=== PATIENT | male | born 1990 | race Caucasian/White ===

== ENCOUNTER 2018-07-04 18:59 | Emergency (ER) | payer OTHER ==
[~2018-07-04] VITALS: Ht 175.3 cm; Wt 105.7 kg
[~2018-07-04 18:59] MED LIST: APAP500 PO; NAPROSYN500 MG PO
[2018-07-04] MEDS ORDERED: IBUPROFEN 800800 M1 PO (19:41)
[2018-07-04 19:51] VITALS: BP 125/80
== END 2018-07-04 19:53 | disposition home or self-care (01) ==
LOC: M.ERS 18:59
DX: S89.81XA Other specified injuries of right lower leg, initial encounter (principal); Z90.49 Acquired absence of other specified parts of digestive tract; X50.1XXA Overexertion from prolonged static or awkward postures, initial encounter; Y93.21 Activity, ice skating; Y92.89 Other specified places as the place of occurrence of the external cause; Y99.8 Other external cause status

== ENCOUNTER → 2018-07-12 | Outpatient (CLI) | payer OTHER ==
[~2018-07-12] MED LIST changes: +IBUPROFEN 800800 M1 PO
== END ==
LOC: M.MRI 13:08
DX: S82.144A Nondisplaced bicondylar fracture of right tibia, initial encounter for closed fracture (principal); M22.41 Chondromalacia patellae, right knee; M67.461 Ganglion, right knee; V00.211A Fall from ice-skates, initial encounter; Y93.21 Activity, ice skating; Y92.89 Other specified places as the place of occurrence of the external cause; Y99.8 Other external cause status

== ENCOUNTER 2020-03-17 18:59 | Emergency (ER) | payer OTHER ==
[~2020-03-17] VITALS: Ht 175.3 cm; Wt 105.7 kg
[2020-03-17] MEDS ORDERED: PROAIR HFA8.5 GM INH ×2 (19:17→21:57)
[2020-03-17] MEDS ORDERED: PREDNISONE50 MG PO (21:57)
[2020-03-17 22:05] VITALS: BP 154/67
== END 2020-03-17 22:06 | disposition home or self-care (01) ==
LOC: M.ERS 18:59
DX: J40 Bronchitis, not specified as acute or chronic (principal); Z20.828 Contact with and (suspected) exposure to other viral communicable diseases; Z90.49 Acquired absence of other specified parts of digestive tract; Z88.0 Allergy status to penicillin

== ENCOUNTER 2021-01-15 17:33 | Emergency (ER) | payer OTHER ==
[~2021-01-15] VITALS: Ht 177.8 cm; Wt 92.1 kg
[~2021-01-15 17:33] MED LIST changes: +PREDNISONE50 MG PO; +PROAIR HFA8.5 GM INH
[2021-01-15 17:40] VITALS: BP 144/70
== END 2021-01-15 18:44 | disposition home or self-care (01) ==
LOC: M.ERS 17:33
DX: Z20.822 Contact with and (suspected) exposure to COVID-19 (principal); J45.909 Unspecified asthma, uncomplicated; F17.210 Nicotine dependence, cigarettes, uncomplicated; Z90.49 Acquired absence of other specified parts of digestive tract; Z98.890 Other specified postprocedural states; Z88.0 Allergy status to penicillin

== ENCOUNTER 2021-04-21 10:03 | Emergency (ER) | payer OTHER ==
[~2021-04-21] VITALS: Ht 175.3 cm; Wt 99.3 kg
[2021-04-21 11:08] VITALS: BP 129/70
== END 2021-04-21 11:08 | disposition home or self-care (01) ==
LOC: M.ERS 10:03
DX: B34.9 Viral infection, unspecified (principal); Z20.822 Contact with and (suspected) exposure to COVID-19; R43.8 Other disturbances of smell and taste; J45.909 Unspecified asthma, uncomplicated; Z98.890 Other specified postprocedural states; Z90.49 Acquired absence of other specified parts of digestive tract; Z88.0 Allergy status to penicillin; Z88.1 Allergy status to other antibiotic agents